=== PATIENT | male | born 1955 | race African-American/Black ===

== ENCOUNTER 2019-07-11 10:35 | Emergency (ER) | payer OTHER ==
[~2019-07-11] VITALS: Ht 182.9 cm; Wt 95.3 kg
[2019-07-11 11:52] VITALS: BP 146/92
[2019-07-11] MEDS ORDERED: KETOROLAC TROMETH 60MG/2ML VIAL IM ONE (12:15)
== END 2019-07-11 12:15 | disposition home or self-care (01) ==
LOC: ER 10:40
DX: M75.81 Other shoulder lesions, right shoulder (principal)
CPT/HCPCS: 72125; 73030; 93005; 96372; 99284; J1885